=== PATIENT | female | born 1985 | race Hispanic/Latino ===

== ENCOUNTER 2018-09-01 18:12 | Emergency (ER) | payer BC, OTHER ==
[2018-09-01 18:19] VITALS: BP 124/82; PULSE 72; RESP 20; TEMP 97; O2SAT 98
--- NOTE | 2018-09-01 18:37 | ED PDOC ---
HPI: Female Pain Time Seen by Provider: 09/01/18 18:28 Chief Complaint (Nursing): Female Genitourinary Chief Complaint (Provider): Female Genitourinary History Per: Patient History/Exam Limitations: no limitations Onset/Duration Of Symptoms: Days (1x) Current Symptoms Are (Timing): Still Present Severity: Moderate Associated Symptoms: Urinary Symptoms (dysuria. (-) discharge, (-) abnormal bleeding). denies: Fever, Chills, Nausea, Vomiting, Diarrhea, Back Pain Additional Complaint(s): 33 year old female with no significant past medical history presents to the ED for an evaluation of dysuria that started today. Patient states that this morning she started experiencing dysuria, and it worsened throughout the day. Patient states that she has a history of multiple UTIs in the past. Patient denies having fevers, chills, back pain, nausea, vomiting, diarrhea, vaginal discharge, or abnormal vaginal bleeding. Last known menstrual period was 2x weeks ago. PMD: None provided. Abnormal Vaginal Bleeding: No Last Menstral Period: 2x weeks ago Past Medical History Reviewed: Historical Data, Nursing Documentation, Vital Signs Vital Signs: Last Vital Signs Temp 97 F L 09/01/18 18:16 Pulse 72 09/01/18 18:16 Resp 20 09/01/18 18:16 BP 124/82 09/01/18 18:16 Pulse Ox 98 09/01/18 18:16 TAMARA Report Viewed: Yes - Medical History PMH: No Chronic Diseases - Family History Family History: States: No Known Family Hx - Home Medications Home Medications: Ambulatory Orders Medication Instructions Recorded Nitrofurantoin Macrocrystals 100 mg PO BID 5 Days cap 09/01/18 [Macrobid] - Allergies Allergies/Adverse Reactions: Allergies Allergy/AdvReac Type Severity Reaction Status Date / Time No Known Allergies Allergy Verified 09/01/18 18:14 Review of Systems ROS Statement: Except As Marked, All Systems Reviewed And Found Negative Constitutional: Negative for: Fever, Chills Gastrointestinal: Negative for: Nausea, Vomiting, Diarrhea Genitourinary Female: Positive for: Dysuria. Negative for: Vaginal Discharge, Vaginal Bleeding Musculoskeletal: Negative for: Back Pain Physical Exam - Reviewed Nursing Documentation Reviewed: Yes Vital Signs Reviewed: Yes - Physical Exam Appears: Positive for: Well, Non-toxic, No Acute Distress Head Exam: Positive for: ATRAUMATIC, NORMOCEPHALIC Skin: Positive for: Normal Color, Warm, Dry Gastrointestinal/Abdominal: Positive for: Soft, Tenderness (mild suprapubic tenderness on palpation. (-) LLQ, LUQ, RLQ, RUQ tenderness on palpation.) Back: Positive for: Normal Inspection. Negative for: L CVA Tenderness, R CVA Tenderness Neurological/Psych: Positive for: Awake, Alert, Oriented (3x) - Laboratory Results Urine dip results: Positive for: Leukocyte Esterase (large), Blood (small amount), Nitrate (positive) - ECG O2 Sat by Pulse Oximetry: 98 (RA) Pulse Ox Interpretation: Normal Medical Decision Making Medical Decision Makin:28 Initial impression: 33 year old female with dysuria Initial plan: * udip * upreg * urine culture * reevaluation 18:48 Udip: nitrate + leukocyte esterase large small amount of blood Scribe Attestation: Documented byMary Jo Hunt, acting as a scribe for Rachel Lau PA-C. Provider Scribe Attestation: All medical record entries made by the Scribe were at my direction and personally dictated by me. I have reviewed the chart and agree that the record accurately reflects my personal performance of the history, physical exam, medical decision making, and the department course for this patient. I have also personally directed, reviewed, and agree with the discharge instructions and disposition. Disposition - Clinical Impression Clinical Impression: Urinary tract infection - Patient ED Disposition Is Patient to be Admitted: No Counseled Patient/Family Regarding: Studies Performed, Rx Given - Disposition Disposition: Routine/Home Disposition Time: 19:14 Condition: STABLE Additional Instructions: Take full course of antibiotics as prescribed. Return to ER if you develop worsening symptoms or fever. Follow up with your primary care doctor as needed. Prescriptions: Nitrofurantoin Macrocrystals [Macrobid] 100 mg PO BID 5 Days cap Instructions: Urinary Tract Infection, Adult (DC) Forms: [employer] (Faroese) Print Language: AMHARIC
== END 2018-09-01 19:14 | disposition home or self-care (01) ==
LOC: H.ER 18:12
DX: N39.0 Urinary tract infection, site not specified (principal)